=== PATIENT | male | born 1980 | race Two or more races ===

== ENCOUNTER 2019-07-22 00:17 | Emergency (ER) | payer MEDICAID ==
[~2019-07-22] VITALS: Ht 154.9 cm; Wt 90.7 kg
[2019-07-22 01:00] VITALS: BP 168/68
--- NOTE | 2019-07-22 01:00 | NUR ---
ED Nurse Note: pt walked in c/o rash throughout his body with pain 9/10. noted small clustered blistering rash and redness throughout pt's upper trunk area. tenderness noted. will cont monitor.
--- NOTE | 2019-07-22 01:22 | Emergency Room Report ---
History of Present Illness General Chief Complaint: Skin Rash/Abscess Source: Patient Present Illness HPI Patientis a 39-year-old male presents after increased painful skin rash to the left side of his chest. Patient had gradual onset of symptoms. He reports taking medications for pain only. He had previous history of psoriasis. He is using only topical medications for this. He reports having increased pain to the area to the left side of his chest. He denies any fever. Allergies: Uncoded Allergies: PENICILLIN (Allergy, Unknown, 07/22/19) Patient History Past Medical History: see triage record Reviewed Nursing Documentation: PMH: Agreed; PSxH: Agreed Nursing Documentation-PMH Hx Hypertension: Yes Review of Systems All Other Systems: negative except mentioned in HPI Physical Exam Vital Signs Date Time Temp Pulse Resp B/P (MAP) Pulse Ox O2 Delivery O2 Flow Rate FiO2 07/22/19 00:40 98.4 85 18 183/111 (135) 97 Room Air General Appearance: well appearing, no apparent distress, alert, GCS 15, obese Head: normocephalic, atraumatic ENT: hearing grossly normal, normal voice Neck: full range of motion, supple Respiratory: lungs clear, no respiratory distress, speaking full sentences Gastrointestinal: normal inspection Musculoskeletal: no calf tenderness Neurologic: alert, motor strength/tone normal, 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 Differential diagnosis includes but is not limited to allergic reaction, contact dermatitis, shingles among others. Patient's rash is consistent with a shingles outbreak. Patient will be given prescription for acyclovir. He will also be given prescription for pain medications. He was advised to follow-up with his primary care physician or physician's aide for recheck in the next few days. He is advised to return if worse. Last Vital Signs Date Time Temp Pulse Resp B/P (MAP) Pulse Ox O2 Delivery O2 Flow Rate FiO2 07/22/19 00:40 98.4 85 18 183/111 (135) 97 Room Air Status: improved Disposition: HOME, SELF-CARE Condition: Stable Scripts Hydrocodone Bit/Acetaminophen 5-325* (NORCO 5-325*) 1 Each Tablet 1 TAB ORAL Q6H PRN for For Pain, #20 TAB 0 Refills Prov: Hunter Solorio MD 07/22/19 Acyclovir* (ZOVIRAX*) 800 Mg Tablet 800 MG ORAL FIVE TIMES A DAY, #35 TAB Prov: Hunter Solorio MD 07/22/19 Hunter Solorio MD Jul 22, 2019 01:22
[2019-07-22] MEDS ORDERED: ACYCLOVIR800 MG ORAL (01:48)
[2019-07-22] MEDS ORDERED: NORCO 5-325 TA1 EACH ORAL (01:48)
[2019-07-22 02:24] VITALS: BP 156/98
--- NOTE | 2019-07-22 02:24 | NUR ---
ED Nurse Note: pt cleared to be d/c per ermd, pt discharge and aftercare instruction provided w/ prescription, pt education done via discussion and handout, pt advised to follow up with pcp, pt verbalized understanding, pt vss, ambulatory w/ steady gait, left w/ all belongings.
== END 2019-07-22 02:24 | disposition home or self-care (01) ==
LOC: EMR 00:55
DX: B02.9 Zoster without complications (principal); I10 Essential (primary) hypertension; Z88.0 Allergy status to penicillin
CPT/HCPCS: 99282

== ENCOUNTER 2019-10-13 00:34 | Inpatient (IN) | payer SELFPAY ==
[~2019-10-13] VITALS: Ht 162.6 cm; Wt 105.7 kg
[2019-10-13] VITALS (7 sets, daily range): BP systolic 135–157; BP diastolic 76–97
[~2019-10-13 00:34] MED LIST: ACYCLOVIR800 MG ORAL; NORCO 5-325 TA1 EACH ORAL
--- NOTE | 2019-10-13 00:50 | NUR ---
ED Nurse Note: Patient walked into ED c/o feeling hot, onset of symptoms of about 4 hours now. at time of arrival patient's temp is 101.5 with a heart rate of 134, reports of 5/10 lower abdominal pain however no nausea or vomiting. patient is alert and oriented x4, and ambulatory with a steady gait. IV started on left forearm 18 gauge, placed on a alarm security or surveillance monitor. will continue to monitor
[2019-10-13 01:17] LABS: HEMATOCRIT 48.5 % (42.0-52.0); HEMOGLOBIN 16.5 G/DL (14.2-18.0); MEAN CORPUSCULAR VOLUME 90 FL (80-99); PLATELET COUNT 193 K/UL (150-450); RED CELL DISTRIBUTION WIDTH 12.1 % (11.6-14.8); WHITE BLOOD COUNT 14.1 K/UL (4.8-10.8)
[2019-10-13 01:31] LABS: ANION GAP 11 mmol/L (5-15); BLOOD UREA NITROGEN 17 mg/dL (7-18); CARBON DIOXIDE 26 MMOL/L (21-32); CHLORIDE 107 MMOL/L (98-107); CREATININE 1.6 MG/DL (0.55-1.30); POTASSIUM 3.6 MMOL/L (3.5-5.1); SODIUM 144 MMOL/L (136-145)
[2019-10-13 01:36] LABS: ALANINE AMINOTRANSFERASE 32 U/L (12-78); ALBUMIN 3.4 G/DL (3.4-5.0); ALKALINE PHOSPHATASE 115 U/L (46-116); ASPARTATE AMINO TRANSFERASE 18 U/L (15-37); BILIRUBIN,TOTAL 0.3 MG/DL (0.2-1.0)
--- NOTE | 2019-10-13 01:38 | NUR ---
ED Nurse Note: xr at bedside
[2019-10-13] MEDS ORDERED: Acetaminophen 500mg (ES) tab ORAL ONE (02:15)
[2019-10-13] MEDS ORDERED: Vancomycin 1 GM in NS 275 ML IVPB ONE (03:00)
[2019-10-13] MEDS ORDERED: Piperacillin/Tazobactam 3.375 GM in NS 110 ML IVPB ONE (03:00)
--- NOTE | 2019-10-13 03:16 | Emergency Room Report ---
History of Present Illness General Chief Complaint: Flu Like Symptoms Present Illness HPI Patient is a 39-year-old male presents after increased generalized body aches and nonproductive cough. Gradual onset of symptoms. Reports having generalized malaise as well as feeling weak all over. Been having frequent episodes of coughing. Prior history of hypertension. He denies any other prior medical history. Denies any recent travel. He denies any vomiting or diarrhea. States he does not drink alcohol regularly. Allergies: Uncoded Allergies: PENICILLIN (Allergy, Unknown, 07/22/19) Patient History Past Medical History: see triage record Reviewed Nursing Documentation: PMH: Agreed; PSxH: Agreed Nursing Documentation-PMH Hx Hypertension: Yes Review of Systems All Other Systems: negative except mentioned in HPI Physical Exam Vital Signs Date Time Temp Pulse Resp B/P (MAP) Pulse Ox O2 Delivery O2 Flow Rate FiO2 10/13/19 00:41 99.5 143 20 157/91 (113) 95 Room Air Sp02 EP Interpretation: reviewed, normal General Appearance: normal inspection, well appearing, no apparent distress, alert, GCS 15, obese, Chronically Ill Head: atraumatic ENT: normal ENT inspection, hearing grossly normal, normal voice Neck: normal inspection, full range of motion, supple, no bony tend Respiratory: normal inspection, no respiratory distress, no retraction, no wheezing Cardiovascular #1: no edema, tachycardia Gastrointestinal: normal inspection, normal bowel sounds, non tender, soft, no guarding, no hernia Genitourinary: no CVA tenderness Musculoskeletal: normal inspection, back normal, normal range of motion Neurologic: alert, motor strength/tone normal, siphon operator III-XII nml as tested, oriented x3, responsive, speech normal, normal inspection Psychiatric: normal inspection, judgement/insight normal, mood/affect normal Skin: other - Scaly rash to extremities consistent with psoriasis Medical Decision Making Diagnostic Impression: Primary Impression: Acute febrile illness Additional Impressions: Tachycardia Pneumonia ER Course Patient presented for cough. Differential diagnosis includes not limited to pneumonia, viral respiratory infection, bronchitis among others. Because of complexity of patient's case laboratory tests and imaging studies were ordered. Patient's laboratory testing showed somewhat elevated white blood count as well as normal hemoglobin. Patient started on IV fluids. He was given antipyretics. He was given IV antibiotics after blood cultures were obtained. Lactic acid level was noted to be less than 2. Patient's was noted to be persistently tachycardic and will be admitted for further evaluation and treatment of acute febrile illness. Patient does not currently have any urinary symptoms and urinalysis did not show any evidence of definite infection. Dr. Maggy Clay was contacted for inpatient management Labs Test 10/13/19 01:00 10/13/19 03:00 White Blood Count 14.1 K/UL (4.8-10.8) Red Blood Count 5.40 M/UL (4.70-6.10) Hemoglobin 16.5 G/DL (14.2-18.0) Hematocrit 48.5 % (42.0-52.0) Mean Corpuscular Volume 90 FL (80-99) Mean Corpuscular Hemoglobin 30.5 PG (27.0-31.0) Mean Corpuscular Hemoglobin Concent 34.0 G/DL (32.0-36.0) Red Cell Distribution Width 12.1 % (11.6-14.8) Platelet Count 193 K/UL (150-450) Mean Platelet Volume 8.0 FL (6.5-10.1) Neutrophils (%) (Auto) % (45.0-75.0) Lymphocytes (%) (Auto) % (20.0-45.0) Monocytes (%) (Auto) % (1.0-10.0) Eosinophils (%) (Auto) % (0.0-3.0) Basophils (%) (Auto) % (0.0-2.0) Sodium Level 144 MMOL/L (136-145) Potassium Level 3.6 MMOL/L (3.5-5.1) Chloride Level 107 MMOL/L (98-107) Carbon Dioxide Level 26 MMOL/L (21-32) Anion Gap 11 mmol/L (5-15) Blood Urea Nitrogen 17 mg/dL (7-18) Creatinine 1.6 MG/DL (0.55-1.30) Estimat Glomerular Filtration Rate 48.4 mL/min (>60) Glucose Level 106 MG/DL (74-106) Lactic Acid Level 1.70 mmol/L (0.4-2.0) Calcium Level 9.0 MG/DL (8.5-10.1) Total Bilirubin 0.3 MG/DL (0.2-1.0) Aspartate Amino Transf (AST/SGOT) 18 U/L (15-37) Alanine Aminotransferase (ALT/SGPT) 32 U/L (12-78) Alkaline Phosphatase 115 U/L (46-116) Total Protein 6.9 G/DL (6.4-8.2) Albumin 3.4 G/DL (3.4-5.0) Globulin 3.5 g/dL Albumin/Globulin Ratio 1.0 (1.0-2.7) EKG Diagnostic Results Rate: tachycardiac Rhythm: NSR ST Segments: no acute changes Last Vital Signs Date Time Temp Pulse Resp B/P (MAP) Pulse Ox O2 Delivery O2 Flow Rate FiO2 10/13/19 02:26 101.0 10/13/19 00:50 143 20 Room Air 10/13/19 00:50 157/91 95 Status: improved Disposition: ADMITTED INPATIENT Condition: Stable Referrals: NOT CHOSEN IPA/,REFERRING (PCP) Hunter Solorio MD Oct 13, 2019 03:16
[2019-10-13] MEDS ORDERED: Vancomycin 1gm vial IVPB ONE (03:23)
[2019-10-13 03:25] LABS: APPEARANCE,URINE CLEAR; BILIRUBIN, URINE NEGATIVE (NEGATIVE); COLOR,URINE PALE YELLOW; GLUCOSE, URINE (UA) NEGATIVE (NEGATIVE); KETONES,URINE NEGATIVE (NEGATIVE); LEUKOCYTE ESTERASE ,URINE NEGATIVE (NEGATIVE); NITRITE,URINE NEGATIVE (NEGATIVE); PH,URINE 6 (4.5-8.0); PROTEIN,URINE 2+ (NEGATIVE); UROBILINOGEN,URINE NORMAL MG/DL (0.0-1.0)
--- NOTE | 2019-10-13 03:30 | NUR ---
TRANSFER TO FLOOR: Patient transferred to [facility] via gurney accompanied by 2 rn in stable condition as ordered, per dr Le. Report given to Aranza PERRIN. Belongings sent with patient
--- NOTE | 2019-10-13 04:00 | NUR ---
NURSE NOTES: Pt received from Diego lin, Pt is alert and oriented x4, on room air, In no acute distress. VSS temp 98.2. Heart rate is tachycardic at 111. Placed on heart rate monitor. Belongings checked and signed at bedside, declined to place valuables in safe. In bed bed is locked, lowest position, side rails x2, call light in reach.
--- NOTE | 2019-10-13 07:46 | NUR ---
HAND-OFF: Report given to MARYCHUY Kaye.
--- NOTE | 2019-10-13 11:46 | Diagnostic Imaging Report ---
Indication: Dyspnea Comparison: None A single view chest radiograph was obtained. Findings: Cardiomediastinal appearance is within normal limits for age. The lungs are clear. Pulmonary vascularity is appropriate. The diaphragmatic contour is smooth and costophrenic angles are sharp. No pleural effusions are identified. The bones are unremarkable. Impression: No acute findings
--- NOTE | 2019-10-13 11:53 | NUR ---
NURSE NOTES: RECVD PT. PT IS AOX4, PT IN ON ROOM AIR WITH NO SIGN OF SOB OR RESP DISTRESS. PT HAS LEFT AC 20 G [address].PT C/O MILD HEADACHE. WILL BE GIVING PT TYLENOL. BED IN LOWEST POSITION, CALL LIGHT WITHIN REACH, WILL CONTINUE WITH PLAN OF CARE
--- NOTE | 2019-10-13 12:41 | Consultation ---
Consult Note Consult Note Asked to eval at the request of Dr Clay Patient is a 39-year-old male presents after increased generalized body aches and nonproductive cough. Gradual onset of symptoms. Reports having generalized malaise as well as feeling weak all over. Been having frequent episodes of coughing. Prior history of hypertension. He denies any other prior medical history. Denies any recent travel. He denies any vomiting or diarrhea. States he does not drink alcohol regularly. Allergies: PENICILLIN (Allergy, Unknown, 07/22/19) Hx Hypertension: Yes Assessment/Plan Cr 1.6- ? DEJON Proteinuria HTN Acute febrile illness , Tachycardia Pneumonia Hydrate Per ID check renal parameters Jose L Cramer MD Oct 13, 2019 12:41
[2019-10-13] MEDS ORDERED: HydrALAZINE 25mg tab ORAL PRN (12:45)
[2019-10-13] MEDS: D5 1/2NS w/KCl 20mEq 1,000 ML IV SCH (13:45)
[2019-10-13] MEDS: dilTIAZem HCl CD 120mg cap ORAL SCH (14:40)
[2019-10-13] MEDS ORDERED: cefTRIAXone 1 GM in D5W 55 ML IVPB SCH ×2 (15:00→18:15)
--- NOTE | 2019-10-13 18:45 | Consultation ---
DATE OF CONSULTATION: 10/13/2019 PULMONARY CONSULTATION CONSULTING PHYSICIAN: Solo Reeder M.D. REFERRING PHYSICIAN: Maggy Le M.D. HISTORY OF PRESENT ILLNESS: This is a 39-year-old male who came to the hospital with cough and generalized weakness. He felt he was having malaise. He had coughing. There was no history of recent travel. In the emergency room, he was evaluated. He is found to have leukocytosis as well as mitral insufficiency. He underwent a workup for infectious causes. Influenza A and B were negative. An x-ray of chest was obtained, which was negative. The patient admitted to the hospital with diagnosis of presumptive pneumonia/bronchitis. PAST MEDICAL HISTORY: Notable for penicillin allergy and hypertension. PREVIOUS SURGERIES: None reported. ALLERGIES: Penicillin. REVIEW OF SYSTEMS: Denies any headaches, hematemesis, melena, or hematochezia. PHYSICAL EXAMINATION: GENERAL: Reveals a 39-year-old male. VITAL SIGNS: He is afebrile. Blood pressure 150/90, heart rate , respirations 18. HEENT: Unremarkable. LUNGS: Clear breath sounds bilaterally. HEART: Normal heart sounds. ABDOMEN: Soft. EXTREMITIES: There is no edema. LABORATORY DATA: As discussed above. X-ray of chest is negative. IMPRESSION: 1. Acute bronchitis. 2. Doubt pneumonia. DISCUSSION: Agree with the use of broad-spectrum antibiotics, this likely represents a upper respiratory infection. He has received Rocephin, vancomycin, and Zosyn. I will continue Rocephin and azithromycin. We will follow as medical technologist chief. Solo Reeder M.D. DR: ELMIRA JOB#: [id number] CC:
--- NOTE | 2019-10-13 19:30 | NUR ---
NURSE NOTES: Received report from MARYCHUY Kaye. Patient is in bed, awake, alert, and responsive. Breathing regular and unlabored with no S/S of SOB noted at this time. Patient denies any pain or discomfort at this time. Patient is able to ambulate without assist to and from bathroom. IV access on the LFA, patent, intact, and running fluids at prescribed rate. Bed remains in lowest position, breaks engaged, and call light is within reach at all times. All other needs attended to, patient remains stable, will continue to monitor.
[2019-10-13] MEDS ORDERED: Azithromycin 500 MG in D5W 275 ML IV SCH (20:00)
--- NOTE | 2019-10-13 20:45 | Consultation ---
DATE OF CONSULTATION: 10/13/2019 INFECTIOUS DISEASES CONSULTATION CONSULTING PHYSICIAN: Brice Crain M.D. PRIMARY ATTENDING PHYSICIAN: Maggy Le M.D. REASON FOR CONSULTATION: Sepsis. HISTORY OF PRESENT ILLNESS: This is a 39-year-old male admitted yesterday complaining of fever, nonproductive cough, generalized pain, and flu-like symptoms. Symptoms started yesterday. The patient had temperature of 101.5 in the ER. He had leukocytosis of 14,000. PAST MEDICAL HISTORY: Significant for hypertension, psoriasis. PAST SURGICAL HISTORY: He has history of umbilical hernia surgery. ALLERGIES: Allergic to penicillin, but tolerated Zosyn in the ER. MEDICATIONS: Getting Cardizem, hydralazine, and Tylenol. Got a dose of vancomycin and Zosyn. SOCIAL HISTORY: He is an ex-smoker. He is single. Denies alcohol or drug abuse. REVIEW OF SYSTEMS: Afebrile since morning, some muscle pain in the back with movement, and slight nonproductive cough. He had urinary frequency yesterday, but no problem today. PHYSICAL EXAMINATION: VITAL SIGNS: Temperature 98.1, pulse 84, and blood pressure 154/97. GENERAL APPEARANCE: He seems to be obese. BMI is 40. No acute distress. HEAD AND NECK: [place] conjunctivae. HEART: Normal rate. LUNGS: Clear. ABDOMEN: Soft and nontender. EXTREMITIES: He has no edema. SKIN: He has bilateral elbow and knee skin lesions. LABORATORY AND DIAGNOSTIC DATA: WBC 14.1, hemoglobin 16.4, hematocrit 48.5, and platelet is 193,000. Sodium 144, potassium 3.6, chloride 107, bicarb 26, BUN 17, creatinine 1.6. LFT within normal limit. UA was negative for wbc; he has 2+ proteinuria. Influenza A and B tests were negative. IMPRESSION: Sepsis with fever and leukocytosis. The source of infection is not clear. Chest x-ray and urine are negative. He has psoriasis, morbid obesity, and hypertension. RECOMMENDATION: The patient is started on ceftriaxone. We will follow up the blood culture. If the patient remains afebrile and culture negative, we will try to discharge the patient soon. We will ask for HIV test. At the end of my exam, I thank Dr. Le for involving me in the care of this patient. Brice Crain M.D. DR: DASHA JOB#: [id number] CC: ESTUARDO
--- NOTE | 2019-10-13 23:00 | History and Physical Report ---
DATE OF ADMISSION: 10/13/2019 HISTORY OF PRESENT ILLNESS: The patient comes in because of fever and chills . The patient had fever of 102, body ache and cough for one day. Influenza was negative. Tachycardic as well. Chest x-ray showed right-sided infiltrate. Antibiotics were given in the ER. The patient does have chills, mild cough, and headache for the past day or so. PAST MEDICAL HISTORY: None. PAST SURGICAL HISTORY: None. FAMILY HISTORY: Noncontributory. SOCIAL HISTORY: Denies history of drug abuse. Denies history of smoking. Does have history of alcohol abuse. MEDICATIONS: None. REVIEW OF SYSTEMS: HEENT: Denies headaches. RESPIRATORY: Denies shortness of breath. Does have mild cough. CARDIOVASCULAR: Denies chest pain or orthopnea. GASTROINTESTINAL: Denies nausea, vomiting, or diarrhea. EXTREMITIES: Mathew pain in lower extremities. CENTRAL NERVOUS SYSTEM: Denies change in speech pattern. Does have headache. PHYSICAL EXAMINATION: VITAL SIGNS: Temperature is 96.6, pulse is 80, blood pressure is 142/93. HEENT: PERRLA. NECK: Supple. No lymphadenopathy. CHEST: Clear to auscultation. CARDIOVASCULAR: Regular rate and rhythm. No murmurs or extra sounds. GASTROINTESTINAL: Soft, nontender, nondistended. No organomegaly. EXTREMITIES: No edema. Moves all four extremities. Sensory intact to light touch. Reflexes equal on both sides. LABORATORY DATA: WBC of 14.1, hemoglobin of 16.5, platelets 193. Sodium 144, potassium 3.6, chloride 104, BUN of 17, creatinine 1.6. ASSESSMENT AND PLAN: Pneumonia. Fever and chills due to pneumonia in this case. I have asked Dr. Solo Reeder and Dr. Brice Crain to see the patient to help with the management of pneumonia. Maggy Le M.D. DR: SUAD JOB#: [id number] CC:
[2019-10-14] VITALS: BP 148/84
[2019-10-14] MEDS: D5 1/2NS w/KCl 20mEq 1,000 ML IV SCH ×2 (02:50→06:24)
[2019-10-14 04:00] VITALS: BP 144/81
[2019-10-14 06:43] LABS: BASOPHILS % (AUTO) 0.4 % (0.0-2.0); EOSINOPHILS % (AUTO) 3.7 % (0.0-3.0); HEMATOCRIT 48.9 % (42.0-52.0); HEMOGLOBIN 16.7 G/DL (14.2-18.0); LYMPHOCYTES % (AUTO) 13.8 % (20.0-45.0); MEAN CORPUSCULAR VOLUME 90 FL (80-99); MONOCYTES % (AUTO) 11.1 % (1.0-10.0); NEUTROPHILS % (AUTO) 70.9 % (45.0-75.0); PLATELET COUNT 158 K/UL (150-450); RED BLOOD COUNT 5.42 M/UL (4.70-6.10); RED CELL DISTRIBUTION WIDTH 12.1 % (11.6-14.8)
[2019-10-14 07:22] LABS: ALANINE AMINOTRANSFERASE 36 U/L (12-78); ALBUMIN/GLOBULIN RATIO 0.8 (1.0-2.7); ALKALINE PHOSPHATASE 101 U/L (46-116); ANION GAP 10 mmol/L (5-15); ASPARTATE AMINO TRANSFERASE 25 U/L (15-37); BILIRUBIN,TOTAL 0.5 MG/DL (0.2-1.0); BLOOD UREA NITROGEN 13 mg/dL (7-18); CARBON DIOXIDE 25 MMOL/L (21-32); CHLORIDE 108 MMOL/L (98-107); CREATININE 1.3 MG/DL (0.55-1.30); GAMMA GLUTAMYL TRANSPEPTIDASE 62 U/L (5-85); PHOSPHORUS 3.2 MG/DL (2.5-4.9); POTASSIUM 3.8 MMOL/L (3.5-5.1); SODIUM 142 MMOL/L (136-145)
--- NOTE | 2019-10-14 07:25 | NUR ---
HAND-OFF: Report given to MARYCHUY Kaye. Patient remains stable, plan of care endorsed.
--- NOTE | 2019-10-14 07:54 | NUR ---
NURSE NOTES: recvd pt. Pt is AOX4, Pt is on room air with no sign of sob or resp distress. Pt has IV site on left AC with no sign of redness or infiltration. Bed in lowest locked position, call light within reach, will continue with plan of care
[2019-10-14 08:00] VITALS: BP 134/88
[2019-10-14] MEDS: dilTIAZem HCl CD 120mg cap ORAL SCH (09:19)
--- NOTE | 2019-10-14 10:20 | General Progress Note ---
Assessment/Plan Problem List: (1) Pneumonia ICD Codes: J18.9 - Pneumonia, unspecified organism SNOMED: 292878381 (2) Tachycardia ICD Codes: R00.0 - Tachycardia, unspecified SNOMED: 0116673 (3) Acute febrile illness ICD Codes: R50.9 - Fever, unspecified SNOMED: 089814156 Status: progressing Assessment/Plan: afebrile no sob no cough pna improving Subjective ROS Limited/Unobtainable: Yes Allergies: Coded Allergies: PENICILLINS (Unverified Allergy, Unknown, 10/13/19) Objective Last 24 Hour Vital Signs Date Time Temp Pulse Resp B/P (MAP) Pulse Ox O2 Delivery O2 Flow Rate FiO2 10/14/19 09:19 89 154/110 10/14/19 08:14 Room Air 10/14/19 08:00 97.9 63 20 134/88 (103) 98 10/14/19 08:00 84 10/14/19 04:00 88 10/14/19 04:00 97.9 73 16 144/81 (102) 98 10/14/19 00:00 99.3 94 16 148/84 (105) 98 10/14/19 00:00 94 10/13/19 21:00 Room Air 10/13/19 20:00 99.0 84 16 137/76 (96) 99 10/13/19 20:00 99 10/13/19 16:45 99.0 10/13/19 16:00 91 10/13/19 16:00 97.9 89 21 153/96 (115) 98 10/13/19 14:40 93 154/97 10/13/19 12:00 93 10/13/19 12:00 98.1 84 19 154/97 (116) 98 Intake and Output 10/13/19 10/14/19 19:00 07:00 Intake Total 600 ml Output Total 1250 ml Balance -650 ml Other 600 ml Output Urine Total 1250 ml Laboratory Tests 10/14/19 05:20: White Blood Count 8.0, Red Blood Count 5.42, Hemoglobin 16.7, Hematocrit 48.9, Mean Corpuscular Volume 90, Mean Corpuscular Hemoglobin 30.8, Mean Corpuscular Hemoglobin Concent 34.2, Red Cell Distribution Width 12.1, Platelet Count 158, Mean Platelet Volume 8.3, Neutrophils (%) (Auto) 70.9, Lymphocytes (%) (Auto) 13.8L, Monocytes (%) (Auto) 11.1H, Eosinophils (%) (Auto) 3.7H, Basophils (%) ( Auto) 0.4, Sodium Level 142, Potassium Level 3.8, Chloride Level 108H, Carbon Dioxide Level 25, Anion Gap 10, Blood Urea Nitrogen 13, Creatinine 1.3, Estimat Glomerular Filtration Rate > 60, Glucose Level 120H, Hemoglobin A1c 5.1, Uric Acid 6.0, Calcium Level 9.0, Phosphorus Level 3.2, Magnesium Level 2.0, Total Bilirubin 0.5, Gamma Glutamyl Transpeptidase 62, Aspartate Amino Transf (AST/ SGOT) 25, Alanine Aminotransferase (ALT/SGPT) 36, Alkaline Phosphatase 101, Total Protein 6.6, Albumin 3.0L, Globulin 3.6, Albumin/Globulin Ratio 0.8L, HIV (1&2) Antibody Rapid Negative Height (Feet): 5 Height (Inches): 4.00 Weight (Pounds): 233 Neck: supple Cardiovascular: normal peripheral pulses Respiratory/Chest: lungs clear Maggy Le MD Oct 14, 2019 10:20
--- NOTE | 2019-10-14 10:34 | Pulmonology Progress Note ---
Assessment/Plan Assessment/Plan IMPRESSION: 1. Acute bronchitis. 2. Doubt pneumonia. DISCUSSION: Doing much better OK to dc on PO abx Solo Reeder M.D. Subjective Interval Events: Better; afebrile; feeling well Constitutional: Reports: no symptoms HEENT: Repors: no symptoms Respiratory: Reports: no symptoms Cardiovascular: Reports: no symptoms Gastrointestinal/Abdominal: Reports: no symptoms Allergies: Coded Allergies: PENICILLINS (Unverified Allergy, Unknown, 10/13/19) Objective Last 24 Hour Vital Signs Date Time Temp Pulse Resp B/P (MAP) Pulse Ox O2 Delivery O2 Flow Rate FiO2 10/14/19 09:19 89 154/110 10/14/19 08:14 Room Air 10/14/19 08:00 97.9 63 20 134/88 (103) 98 10/14/19 08:00 84 10/14/19 04:00 88 10/14/19 04:00 97.9 73 16 144/81 (102) 98 10/14/19 00:00 99.3 94 16 148/84 (105) 98 10/14/19 00:00 94 10/13/19 21:00 Room Air 10/13/19 20:00 99.0 84 16 137/76 (96) 99 10/13/19 20:00 99 10/13/19 16:45 99.0 10/13/19 16:00 91 10/13/19 16:00 97.9 89 21 153/96 (115) 98 10/13/19 14:40 93 154/97 10/13/19 12:00 93 10/13/19 12:00 98.1 84 19 154/97 (116) 98 Intake and Output 10/13/19 10/14/19 19:00 07:00 Intake Total 600 ml Output Total 1250 ml Balance -650 ml Other 600 ml Output Urine Total 1250 ml General Appearance: no acute distress HEENT: normocephalic Respiratory/Chest: chest wall non-tender Cardiovascular: normal peripheral pulses Abdomen: normal bowel sounds Microbiology Date/Time Source Procedure Growth Status 10/13/19 01:10 Blood Blood Culture - Preliminary NO GROWTH AFTER 24 HOURS Resulted 10/13/19 01:00 Blood Blood Culture - Preliminary NO GROWTH AFTER 24 HOURS Resulted 10/13/19 02:05 Nasal Nares - Final Complete 10/13/19 02:05 Nasal Nares - Final Complete Laboratory Tests 10/14/19 05:20: White Blood Count 8.0, Red Blood Count 5.42, Hemoglobin 16.7, Hematocrit 48.9, Mean Corpuscular Volume 90, Mean Corpuscular Hemoglobin 30.8, Mean Corpuscular Hemoglobin Concent 34.2, Red Cell Distribution Width 12.1, Platelet Count 158, Mean Platelet Volume 8.3, Neutrophils (%) (Auto) 70.9, Lymphocytes (%) (Auto) 13.8L, Monocytes (%) (Auto) 11.1H, Eosinophils (%) (Auto) 3.7H, Basophils (%) ( Auto) 0.4, Sodium Level 142, Potassium Level 3.8, Chloride Level 108H, Carbon Dioxide Level 25, Anion Gap 10, Blood Urea Nitrogen 13, Creatinine 1.3, Estimat Glomerular Filtration Rate > 60, Glucose Level 120H, Hemoglobin A1c 5.1, Uric Acid 6.0, Calcium Level 9.0, Phosphorus Level 3.2, Magnesium Level 2.0, Total Bilirubin 0.5, Gamma Glutamyl Transpeptidase 62, Aspartate Amino Transf (AST/ SGOT) 25, Alanine Aminotransferase (ALT/SGPT) 36, Alkaline Phosphatase 101, Total Protein 6.6, Albumin 3.0L, Globulin 3.6, Albumin/Globulin Ratio 0.8L, HIV (1&2) Antibody Rapid Negative Current Medications Medications (Trade) Dose Ordered Sig/Reuben Route PRN Reason Start Time Stop Time Status Last Admin Dose Admin Acetaminophen (Tylenol) 650 mg Q4H PRN ORAL Mild Pain/Temp > 100.5 10/13/19 08:00 11/12/19 07:59 10/14/19 00:14 Azithromycin 500 mg/Dextrose 275 ml @ 275 mls/hr Q24HRS IV 10/13/19 20:00 10/19/19 20:59 10/13/19 20:30 Ceftriaxone Sodium 1 gm/ Dextrose 55 ml @ 110 mls/hr Q24H IVPB 10/13/19 15:00 10/20/19 14:59 10/13/19 16:00 Dextrose/ Electrolytes 1,000 ml @ 75 mls/hr [id number] IV 10/13/19 13:30 11/12/19 13:29 10/14/19 06:24 Diltiazem HCl (Cardizem CD) 120 mg DAILY ORAL 10/13/19 14:30 11/12/19 14:29 10/14/19 09:19 Hydralazine HCl (Apresoline) 25 mg Q4H PRN ORAL bp over 160 syst 10/13/19 12:45 11/12/19 12:44 Solo Reeder MD Oct 14, 2019 10:34
--- NOTE | 2019-10-14 10:44 | Infectious Diseases Prog Note ---
Assessment/Plan Assessment/Plan IMPRESSION: Sepsis, resolved fever and leukocytosis. Acute febrile illness psoriasis, Morbid obesity Hypertension. RECOMMENDATION: Continue ceftriaxone. We will follow up cultures. Subjective ROS Limited/Unobtainable: No Respiratory: Reports: no symptoms Cardiovascular: Reports: no symptoms Gastrointestinal/Abdominal: Reports: no symptoms Genitourinary: Reports: no symptoms Allergies: Coded Allergies: PENICILLINS (Unverified Allergy, Unknown, 10/13/19) Objective Vital Signs Last 24 Hour Vital Signs Date Time Temp Pulse Resp B/P (MAP) Pulse Ox O2 Delivery O2 Flow Rate FiO2 10/14/19 09:19 89 154/110 10/14/19 08:14 Room Air 10/14/19 08:00 97.9 63 20 134/88 (103) 98 10/14/19 08:00 84 10/14/19 04:00 88 10/14/19 04:00 97.9 73 16 144/81 (102) 98 10/14/19 00:00 99.3 94 16 148/84 (105) 98 10/14/19 00:00 94 10/13/19 21:00 Room Air 10/13/19 20:00 99.0 84 16 137/76 (96) 99 10/13/19 20:00 99 10/13/19 16:45 99.0 10/13/19 16:00 91 10/13/19 16:00 97.9 89 21 153/96 (115) 98 10/13/19 14:40 93 154/97 10/13/19 12:00 93 10/13/19 12:00 98.1 84 19 154/97 (116) 98 Height (Feet): 5 Height (Inches): 4.00 Weight (Pounds): 233 General Appearance: no acute distress, other - obese HEENT: mucous membranes moist Respiratory/Chest: lungs clear Cardiovascular: normal rate Abdomen: soft, non tender Extremities: no edema Skin: lesions, other - elbows & knees Neurologic/Psychiatric: alert, oriented x 3, responsive Microbiology Date/Time Source Procedure Growth Status 10/13/19 01:10 Blood Blood Culture - Preliminary NO GROWTH AFTER 24 HOURS Resulted 10/13/19 01:00 Blood Blood Culture - Preliminary NO GROWTH AFTER 24 HOURS Resulted 10/13/19 02:05 Nasal Nares - Final Complete 10/13/19 02:05 Nasal Nares - Final Complete Laboratory Tests Test 10/14/19 05:20 White Blood Count 8.0 K/UL (4.8-10.8) Red Blood Count 5.42 M/UL (4.70-6.10) Hemoglobin 16.7 G/DL (14.2-18.0) Hematocrit 48.9 % (42.0-52.0) Mean Corpuscular Volume 90 FL (80-99) Mean Corpuscular Hemoglobin 30.8 PG (27.0-31.0) Mean Corpuscular Hemoglobin Concent 34.2 G/DL (32.0-36.0) Red Cell Distribution Width 12.1 % (11.6-14.8) Platelet Count 158 K/UL (150-450) Mean Platelet Volume 8.3 FL (6.5-10.1) Neutrophils (%) (Auto) 70.9 % (45.0-75.0) Lymphocytes (%) (Auto) 13.8 % (20.0-45.0) L Monocytes (%) (Auto) 11.1 % (1.0-10.0) H Eosinophils (%) (Auto) 3.7 % (0.0-3.0) H Basophils (%) (Auto) 0.4 % (0.0-2.0) Sodium Level 142 MMOL/L (136-145) Potassium Level 3.8 MMOL/L (3.5-5.1) Chloride Level 108 MMOL/L (98-107) H Carbon Dioxide Level 25 MMOL/L (21-32) Anion Gap 10 mmol/L (5-15) Blood Urea Nitrogen 13 mg/dL (7-18) Creatinine 1.3 MG/DL (0.55-1.30) Estimat Glomerular Filtration Rate > 60 mL/min (>60) Glucose Level 120 MG/DL (74-106) H Hemoglobin A1c 5.1 % (4.3-6.0) Uric Acid 6.0 MG/DL (2.6-7.2) Calcium Level 9.0 MG/DL (8.5-10.1) Phosphorus Level 3.2 MG/DL (2.5-4.9) Magnesium Level 2.0 MG/DL (1.8-2.4) Total Bilirubin 0.5 MG/DL (0.2-1.0) Gamma Glutamyl Transpeptidase 62 U/L (5-85) Aspartate Amino Transf (AST/SGOT) 25 U/L (15-37) Alanine Aminotransferase (ALT/SGPT) 36 U/L (12-78) Alkaline Phosphatase 101 U/L (46-116) Total Protein 6.6 G/DL (6.4-8.2) Albumin 3.0 G/DL (3.4-5.0) L Globulin 3.6 g/dL Albumin/Globulin Ratio 0.8 (1.0-2.7) L HIV (1&2) Antibody Rapid Negative (NEGATIVE) Current Medications Medications (Trade) Dose Ordered Sig/Reuben Route PRN Reason Start Time Stop Time Status Last Admin Dose Admin Acetaminophen (Tylenol) 650 mg Q4H PRN ORAL Mild Pain/Temp > 100.5 10/13/19 08:00 11/12/19 07:59 10/14/19 00:14 Azithromycin 500 mg/Dextrose 275 ml @ 275 mls/hr Q24HRS IV 10/13/19 20:00 10/19/19 20:59 10/13/19 20:30 Ceftriaxone Sodium 1 gm/ Dextrose 55 ml @ 110 mls/hr Q24H IVPB 10/13/19 15:00 10/20/19 14:59 10/13/19 16:00 Dextrose/ Electrolytes 1,000 ml @ 75 mls/hr [id number] IV 10/13/19 13:30 11/12/19 13:29 10/14/19 06:24 Diltiazem HCl (Cardizem CD) 120 mg DAILY ORAL 10/13/19 14:30 11/12/19 14:29 10/14/19 09:19 Hydralazine HCl (Apresoline) 25 mg Q4H PRN ORAL bp over 160 syst 10/13/19 12:45 11/12/19 12:44 Brice Crain MD Oct 14, 2019 10:44
--- NOTE | 2019-10-14 11:04 | NUR ---
NURSE NOTES: Per Dr Le ok to dc home if ok with Dr Johnson
--- NOTE | 2019-10-14 11:04 | NUR ---
NURSE NOTES: ok to dc home per DR Johnson
--- NOTE | 2019-10-14 11:30 | Nephrology Progress Note ---
Assessment/Plan Problem List: (1) Acute febrile illness (2) Hypertension (3) Dehydration Assessment: Cr normalized (4) Obese Assessment Cr 1.6- ? DEJON Proteinuria HTN Acute febrile illness , Tachycardia Pneumonia Obese Plan Hydrate Per ID check renal parameters Subjective ROS Limited/Unobtainable: No Constitutional: Reports: malaise Objective Objective Last 24 Hour Vital Signs Date Time Temp Pulse Resp B/P (MAP) Pulse Ox O2 Delivery O2 Flow Rate FiO2 10/14/19 09:19 89 154/110 10/14/19 08:14 Room Air 10/14/19 08:00 97.9 63 20 134/88 (103) 98 10/14/19 08:00 84 10/14/19 04:00 88 10/14/19 04:00 97.9 73 16 144/81 (102) 98 10/14/19 00:00 99.3 94 16 148/84 (105) 98 10/14/19 00:00 94 10/13/19 21:00 Room Air 10/13/19 20:00 99.0 84 16 137/76 (96) 99 10/13/19 20:00 99 10/13/19 16:45 99.0 10/13/19 16:00 91 10/13/19 16:00 97.9 89 21 153/96 (115) 98 10/13/19 14:40 93 154/97 10/13/19 12:00 93 10/13/19 12:00 98.1 84 19 154/97 (116) 98 Intake and Output 10/13/19 10/14/19 19:00 07:00 Intake Total 600 ml Output Total 1250 ml Balance -650 ml Other 600 ml Output Urine Total 1250 ml Laboratory Tests 10/14/19 05:20: White Blood Count 8.0, Red Blood Count 5.42, Hemoglobin 16.7, Hematocrit 48.9, Mean Corpuscular Volume 90, Mean Corpuscular Hemoglobin 30.8, Mean Corpuscular Hemoglobin Concent 34.2, Red Cell Distribution Width 12.1, Platelet Count 158, Mean Platelet Volume 8.3, Neutrophils (%) (Auto) 70.9, Lymphocytes (%) (Auto) 13.8L, Monocytes (%) (Auto) 11.1H, Eosinophils (%) (Auto) 3.7H, Basophils (%) ( Auto) 0.4, Sodium Level 142, Potassium Level 3.8, Chloride Level 108H, Carbon Dioxide Level 25, Anion Gap 10, Blood Urea Nitrogen 13, Creatinine 1.3, Estimat Glomerular Filtration Rate > 60, Glucose Level 120H, Hemoglobin A1c 5.1, Uric Acid 6.0, Calcium Level 9.0, Phosphorus Level 3.2, Magnesium Level 2.0, Total Bilirubin 0.5, Gamma Glutamyl Transpeptidase 62, Aspartate Amino Transf (AST/ SGOT) 25, Alanine Aminotransferase (ALT/SGPT) 36, Alkaline Phosphatase 101, Total Protein 6.6, Albumin 3.0L, Globulin 3.6, Albumin/Globulin Ratio 0.8L, HIV (1&2) Antibody Rapid Negative Height (Feet): 5 Height (Inches): 4.00 Weight (Pounds): 233 General Appearance: no apparent distress Objective no change Jose L Cramer MD Oct 14, 2019 11:30
[2019-10-14 12:00] VITALS: BP 155/96
[2019-10-14] MEDS ORDERED: D5 1/2NS w/KCl 20mEq 1,000 ML IV SCH (13:30)
[2019-10-14] MEDS ORDERED: dilTIAZem HCl 60mg tab ORAL SCH (14:00)
--- NOTE | 2019-10-18 08:18 | Discharge Summary ---
Discharge Summary Discharge Summary _ DATE OF ADMISSION: 10/13/2019 DATE OF DISCHARGE: 10/14/2019 DISCHARGED BY: Dr. Le REASON FOR ADMISSION: 39 years old male with past medical history of hypertension, presented with generalized body aches and nonproductive cough. He reported generalized malaise, weakness and cough . Patient reported gradual onset of symptoms . Upon evaluation patient had low-grade fever and was tachycardic Pulse oximetry was stable on room air. He denied recent traveling . No vomiting or diarrhea Laboratory work-up revealed leukocytosis WBC 14.1 , stable hemoglobin , hematocrit and platelet count. Stable electrolytes. BUN 17, creatinine 1.6. Lactic acid 1.7. Stable LFT. EKG revealed sinus tachycardia , no acute ischemic changes. Chest x-ray revealed no acute cardiopulmonary pathology. Patient admitted with acute febrile illness and for further management CONSULTANTS: pulmonary Dr. Reeder ID specialist Dr. Farideh Crain mental health therapist Dr. Cramer HOSPITAL COURSE: Patient admitted to telemetry floor. Patient started on empiric antibiotic as per ID specialist recommendations. Influenza swab was negative. Blood cultures were negative. Leukocytosis resolved the next day. Fevers resolved . Stripper Preliminary followed. Supplemental oxygen provided and titrated to keep oximetry above 92%. Bronchodilator treatment via HHN provided. Antitussive were on board as needed. Stripper Preliminary doubted pneumonia, was more inclined towards acute bronchitis. Patient symptomatically improved Foam Cutting Supervisor followed. Patient was hydrated. Renal parameters and electrolytes were closely monitored. Nephrotoxic avoided if possible . The next day creatinine from 1.6 down to 1.3 acute kidney injury resolved. Of note , urinalysis revealed +2 protein. Patient clinically stabilized and was ready for discharge. Due to rapid and unexpected improvement patient condition patient was discharged in 1 day. FINAL DIAGNOSES: Sepsis with fever and leukocytosis -resolved Acute febrile illness Acute bronchitis Acute kidney injury-resolved Proteinuria Morbid obesity Hypertension Psoriasis DISCHARGE MEDICATIONS: See Medication Reconciliation list. DISCHARGE INSTRUCTIONS: Patient was discharged home. Follow-up with primary care provider in 1 week. I have been assigned to dictate discharge summary for this account. I was not involved in the patient's management. Nubia Ewing NP Oct 18, 2019 08:18
== END 2019-10-14 14:06 | disposition home or self-care (01) | DRG 872 ==
LOC: EMR 00:50 → 2E 02:30 → EDBEDREQ 02:57
DX: A41.9 Sepsis, unspecified organism (principal); Z68.41 Body mass index [BMI] 40.0-44.9, adult; N17.9 Acute kidney failure, unspecified; J20.9 Acute bronchitis, unspecified; Z88.0 Allergy status to penicillin; I10 Essential (primary) hypertension; L40.9 Psoriasis, unspecified; E66.01 Morbid (severe) obesity due to excess calories; E86.0 Dehydration
CPT/HCPCS: 36415; 71045; 80053; 81003; 82977; 83036; 83605; 83735; 84100; 84484; 84550; 85025; 86703; 86710; 87040; 93005; 96361; 96365; 96368; 99285; J7030

== ENCOUNTER 2020-01-30 01:59 | Emergency (ER) | payer SELFPAY ==
[~2020-01-30] VITALS: Ht 162.6 cm; Wt 99.8 kg
[2020-01-30 02:14] VITALS: BP 161/104
--- NOTE | 2020-01-30 02:16 | NUR ---
Nurse Note: Pt walked in c/o lower back pain for 3 days. Pt stated he slept on the floor and s/s started afterwards. 8/ pain, took aleeve and tylenol, not effective. Pt able to move legs and feet with no discomfort. Pt stated pain occurs when he stands and bends.
--- NOTE | 2020-01-30 02:23 | Emergency Room Report ---
History of Present Illness General Chief Complaint: Back Pain-No Injury Source: Patient Present Illness HPI This is a 39-year-old male with history of high blood pressure. He presents with chief complaint of back pain. Onset for last 3 days now. He said he slept on the floor and the next day we got up he complained of back pain the left side. Radiate to the hip area. Worse with movement. Some relief with Aleve and Motrin. No incontinence of bowel or urine. No trauma. Pain is 8 out of 10. No fever or chills. Allergies: Coded Allergies: PENICILLINS (Unverified Allergy, Unknown, 10/13/19) COVID-19 Screening Contact w/high risk pt: No Recent Travel to affected area: No Experienced COVID-19 symptoms?: No COVID-19 Testing performed VASCULAR SURGEON: No Patient History Past Medical History: see triage record, old chart reviewed, HTN Past Surgical History: none Pertinent Family History: none Social History: Denies: smoking Immunizations: other Reviewed Nursing Documentation: PMH: Agreed; PSxH: Agreed Nursing Documentation-PMH Hx Cardiac Problems: Yes Hx Hypertension: Yes Hx Cancer: No Hx Gastrointestinal Problems: No Hx Neurological Problems: No Review of Systems Eye: Denies: eye pain, blurred vision ENT: Denies: ear pain, nose congestion, throat swelling Respiratory: Denies: cough, shortness of breath Cardiovascular: Denies: chest pain, palpitations Gastrointestinal: Denies: abdominal pain, diarrhea, nausea, vomiting Musculoskeletal: Reports: back pain; Denies: joint pain Skin: Denies: rash Neurological: Denies: headache, numbness Endocrine: Denies: increased thirst, increased urine Hematologic/Lymphatic: Denies: easy bruising All Other Systems: negative except mentioned in HPI Physical Exam Vital Signs Date Time Temp Pulse Resp B/P (MAP) Pulse Ox O2 Delivery O2 Flow Rate FiO2 01/30/20 02:05 98.1 75 18 161/104 (123) 98 Room Air Vitals with high blood pressure Sp02 EP Interpretation: reviewed, normal General Appearance: well appearing, no apparent distress, alert Head: normocephalic, atraumatic Eyes: bilateral eye PERRL, bilateral eye EOMI ENT: hearing grossly normal, normal pharynx Neck: full range of motion, supple, no meningismus Respiratory: chest non-tender, lungs clear, normal breath sounds Cardiovascular #1: regular rate, rhythm, no murmur Gastrointestinal: normal bowel sounds, non tender, no mass, no organomegaly, no bruit, non-distended Musculoskeletal: back normal - Tenderness to the lower lumbar on the left side. No step-off. No anesthesia., normal range of motion, gait/station normal Psychiatric: mood/affect normal Medical Decision Making Diagnostic Impression: Primary Impression: Back pain Qualified Codes: M54.5 - Low back pain Additional Impression: Hypertension Qualified Codes: I10 - Essential (primary) hypertension ER Course Presents with back pain. No evidence of any fracture dislocation. No evidence of cauda equina syndrome, spinal epidural abscess or neoplastic process. Other X-Ray Diagnostic Results Other X-Ray Diagnostic Results : X-Ray ordered: X-rays lumbar spine # of Views/Limited Vs Complete: Complete Indication: Pain EP Interpretation: Yes Interpretation: no dislocation, no soft tissue swelling, no fractures Impression: No acute disease Electronically Signed by: Magan Lunsford MD Last Vital Signs Date Time Temp Pulse Resp B/P (MAP) Pulse Ox O2 Delivery O2 Flow Rate FiO2 01/30/20 02:14 98.1 88 18 161/104 98 Room Air Status: improved Disposition: HOME, SELF-CARE Condition: Stable Scripts Ibuprofen* (MOTRIN*) 600 Mg Tablet 600 MG ORAL Q6H PRN for For Pain, #30 TAB 0 Refills Prov: Magan Lunsford MD 01/30/20 Hydrocodone/Acetaminophen 5-325* (HYDROCODONE/ACETAMINOPHEN 5-325*) 1 Each Tablet 1 TAB ORAL Q6H PRN for For Pain, #15 TAB 0 Refills Prov: Magan Lunsfrod MD 01/30/20 Referrals: NOT CHOSEN IPA/,REFERRING (PCP) Patient Instructions: Back Pain, Adult Magan Lunsford MD Jan 30, 2020 02:23
[2020-01-30] MEDS ORDERED: IBUPROFEN600 M1 ORAL (02:25)
[2020-01-30] MEDS ORDERED: HYDROCODON-ACE1 EA15 ORAL (02:25)
[2020-01-30] MEDS ORDERED: HYDROcodone/Acetamin 5/325 tab ORAL ONE (02:30)
[2020-01-30 02:57] VITALS: BP 146/97
--- NOTE | 2020-01-30 03:50 | Diagnostic Imaging Report ---
EXAM: XR Lumbosacral Spine, 2 or 3 Views CLINICAL HISTORY: TRAUMA TECHNIQUE: Frontal and lateral views of the lumbar spine and sacrum. COMPARISON: No relevant prior studies available. FINDINGS: Vertebrae: There is mild anterior height loss at T12 which is probably chronic. No acute fracture. Normal alignment. Sacrum/coccyx: Unremarkable as visualized. No acute fracture. Disc spaces: Degenerative changes in the lumbar spine. No acute lumbar spine fracture. Soft tissues: Unremarkable. IMPRESSION: 1. No acute lumbar spine fracture. 2. Mild anterior height loss of T12 is likely chronic.
== END 2020-01-30 03:00 | disposition home or self-care (01) ==
LOC: EMR 02:10
DX: M54.5 Low back pain (principal); I10 Essential (primary) hypertension; Z88.0 Allergy status to penicillin
CPT/HCPCS: 72020; 99283